=== PATIENT | female | born 1980 ===

== ENCOUNTER 2017-03-16 15:36 | Emergency (ER) | payer OTHER ==
[2017-03-16 15:51] VITALS: RESP 16
--- NOTE | 2017-03-16 16:40 | C.PDOC ---
History Of Present Illness 36 year old female, whose past medical history includes HTN, presents to the ED for evaluation of a periorbital headache and intermittent dizziness which began around 3 days ago. Patient states she was evaluated by her PMD yesterday, who increased the dosage of her blood pressure medication. Patient states her dizziness and still not resolved and presents to the ED for further evaluation. 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 Patient denies fever, chills, nausea, vomiting, extremity numbness/weakness, or symptoms being the worst headache of her life. Time Seen by Provider: 03/16/17 16:01 Chief Complaint (Nursing): Dizziness/Lightheaded History Per: Patient History/Exam Limitations: no limitations Onset/Duration Of Symptoms: Days (3), Intermittent Episodes Current Symptoms Are (Timing): Still Present Seizure Or Post-ictal Symptoms: None Fall Associated With With Symptoms: No Additional History Per: Patient Past Medical History Reviewed: Historical Data, Nursing Documentation, Vital Signs Vital Signs: Last Vital Signs Temp 98.0 F 03/16/17 17:33 Pulse 81 03/16/17 17:33 Resp 16 03/16/17 17:33 BP 113/79 03/16/17 17:33 Pulse Ox 99 03/16/17 18:55 - Medical History PMH: HTN Family History: States: No Known Family Hx - Social History Hx Tobacco Use: No Hx Alcohol Use: No Hx Substance Use: No - Immunization History Hx Tetanus Toxoid Vaccination: No Hx Influenza Vaccination: No Hx Pneumococcal Vaccination: No Review Of Systems Constitutional: Negative for: Fever, Chills Gastrointestinal: Negative for: Nausea, Vomiting Neurological: Positive for: Headache (periorbital ), Dizziness. Negative for: Weakness, Numbness Physical Exam - Physical Exam Appears: Non-toxic, No Acute Distress Skin: Normal Color, Warm, Dry Head: Atraumatic, Normacephalic, No Tenderness, No Swelling Eye(s): bilateral: Normal Inspection, PERRL, EOMI Ear(s): Bilateral: Normal Nose: Normal, No Discharge Oral Mucosa: Moist Throat: Normal, No Erythema, No Exudate Neck: Supple Chest: Symmetrical, No Deformity, No Tenderness Cardiovascular: Rhythm Regular, No Murmur Respiratory: Normal Breath Sounds, No Rales, No Rhonchi, No Wheezing Extremity: Normal ROM, Capillary Refill (less than 2 seconds ) Neurological/Psych: Oriented x3, Normal Speech, Normal Cognition, Other (no focal deficits ) Gait: Steady ED Course And Treatment O2 Sat by Pulse Oximetry: 99 (on RA) Pulse Ox Interpretation: Normal Progress Note: Meclizine PO and Tylenol PO administered. On reassessment, patient is resting comfortably, showing no signs of distress and reports complete resolution of her symptoms. Patient is stable for discharge and is advised to follow up with her PMD and Dr. Luevano within 1-2 days for further evaluation and/or return to the ED if sytmptoms return or worsen. Reassessment Condition: Improved Disposition Counseled Patient/Family Regarding: Studies Performed, Diagnosis, Need For Followup - Disposition Referrals: Kushal Lombardo DO [Staff Provider] - Danny Luevano MD [Staff Provider] - Disposition: HOME/ ROUTINE Disposition Time: 17:19 Condition: STABLE Additional Instructions: FOLLOW UP WITH DR. LOMBARDO AND DR. LUEVANO ON SATURDAY FOR RE-EVALUATION. IF SYMPTOMS GET WORSE OR ANY NEW CONCERNING SYMPTOMS DEVELOP RETURN TO ED. 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 - Scribe Statement The provider has reviewed the documentation as recorded by the Scribe (Jillian Higgins) All medical record entries made by the Scribe were at my direction and personally dictated by me. I have reviewed the chart and agree that the record accurately reflects my personal performance of the history, physical exam, medical decision making, and the department course for this patient. I have also personally directed, reviewed, and agree with the discharge instructions and disposition.
[2017-03-16 17:34] VITALS: BP 113/79; PULSE 81; TEMP 98
[2017-03-16 18:47] VITALS: O2SAT 99
== END 2017-03-16 17:42 | disposition home or self-care (01) ==
LOC: C.ER 15:36
DX: R42 Dizziness and giddiness (principal); R51 Headache

== ENCOUNTER 2018-07-04 09:49 | Emergency (ER) | payer OTHER ==
[2018-07-04 10:03] VITALS: PULSE 72
[2018-07-04] MEDS ORDERED: Sodium Chloride 0.9% 1,000 ML IV ONE (10:36)
[2018-07-04 11:02] LABS: BASO % 0.5 % (0.0-2.0); EOS % 0.6 % (0.0-4.0); LYMPH # 1.3 K/uL (1.0-4.3); LYMPH % 28.8 % (20.0-40.0); MEAN CELL VOLUME 86.2 fL (81.0-99.0); MEAN CORPUSCULAR HEMOGLOBIN 27.6 pg (27.0-31.0); MEAN PLATELET VOLUME 8.8 fL (7.2-11.7); MONO # 0.4 K/uL (0.0-0.8); MONO % 9.3 % (0.0-10.0); NEUT # 2.8 K/uL (1.8-7.0); NEUT % 60.8 % (50.0-75.0); NRBC % 0.1 % (0.0-2.0); RBC 4.72 Mil/uL (3.80-5.20); RED CELL DISTRIBUTION WIDTH 13.4 % (11.5-14.5); WHITE BLOOD COUNT 4.6 K/uL (4.8-10.8)
[2018-07-04 11:12] LABS: HCG,QUALITATIVE URINE NEGATIVE (NEGATIVE)
[2018-07-04 11:16] LABS: ALB/GLOB RATIO 1.2 (1.0-2.1); ALBUMIN 4.2 g/dL (3.5-5.0); ALT/SGPT 18 U/L (9-52); AST/SGOT 30 U/L (14-36); BLOOD UREA NITROGEN 13 mg/dL (7-17); GFR NON-AFRICAN AMERICAN > 60; LIPASE 221 U/L (23-300)
[2018-07-04 11:26] LABS: SQUAMOUS EPITHIAL 9 /hpf (0-5); URINE BACTERIA RARE (<OCC); URINE BILIRUBIN NEGATIVE (NEGATIVE); URINE BLOOD NEGATIVE (NEGATIVE); URINE CLARITY Hazy (Clear); URINE COLOR YELLOW (YELLOW); URINE GLUCOSE (UA) NORMAL (Normal); URINE LEUKOCYTE ESTERASE TRACE Leu/uL (Negative); URINE PROTEIN 1+ mg/dL (NEGATIVE); URINE UROBILINOGEN NORMAL mg/dL (0.2-1.0)
--- NOTE | 2018-07-04 12:00 | C.PDOC ---
History Of Present Illness Patient complains of 2 days generalized cramping abdominal pain with associated nausea, vomiting and diarrhea. states stool is loose, but not actual "diarrhea". Denies fever, urinary symptoms, back pain, recent travel, sick contacts. Time Seen by Provider: 07/04/18 10:23 Chief Complaint (Nursing): Abdominal Pain History Per: Patient History/Exam Limitations: no limitations Onset/Duration Of Symptoms: Days (2) Current Symptoms Are (Timing): Still Present Location Of Pain/Discomfort: Diffuse Past Medical History Reviewed: Historical Data, Nursing Documentation, Vital Signs Vital Signs: Last Vital Signs Temp 98.7 F 07/04/18 10:02 Pulse 72 07/04/18 10:02 Resp 20 07/04/18 10:02 BP 139/93 H 07/04/18 10:02 Pulse Ox 96 07/04/18 10:02 - Medical History PMH: HTN Family History: States: Unknown Family Hx - Social History Hx Tobacco Use: No Hx Alcohol Use: No Hx Substance Use: No - Immunization History Hx Tetanus Toxoid Vaccination: No Hx Influenza Vaccination: No Hx Pneumococcal Vaccination: No Review Of Systems Constitutional: Negative for: Fever, Weakness Cardiovascular: Negative for: Chest Pain, Palpitations Respiratory: Negative for: Shortness of Breath Gastrointestinal: Positive for: Nausea, Vomiting, Abdominal Pain, Diarrhea. Negative for: Constipation, Rectal Pain Genitourinary: Negative for: Dysuria, Vaginal Bleeding Skin: Negative for: Rash Neurological: Negative for: Headache Physical Exam - Physical Exam Appears: Well, Non-toxic, No Acute Distress Skin: Warm, Dry, No Pale, No Jaundice Head: Atraumatic, Normacephalic Eye(s): bilateral: Normal Inspection, EOMI Neck: Normal ROM Chest: Symmetrical Cardiovascular: Rhythm Regular, No Murmur Respiratory: Normal Breath Sounds, No Accessory Muscle Use, No Wheezing Gastrointestinal/Abdominal: Bowel Sounds, Soft, Tenderness (diffuse across abdomen), No Organomegaly, No Mass, No Distention, Guarding, No Rebound, No Hernia Back: Normal Inspection, No CVA Tenderness Extremity: Bilateral: Atraumatic, Normal ROM Neurological/Psych: Oriented x3, Normal Speech ED Course And Treatment - Laboratory Results Result Diagrams: 07/04/18 10:58 07/04/18 10:58 Lab Results: Total Bilirubin 0.9 mg/dL (0.2-1.3) 07/04/18 10:58 AST 30 U/L (14-36) 07/04/18 10:58 ALT 18 U/L (9-52) 07/04/18 10:58 Alkaline Phosphatase 73 U/L (38-126) 07/04/18 10:58 Total Protein 7.6 g/dL (6.3-8.3) 07/04/18 10:58 Albumin 4.2 g/dL (3.5-5.0) 07/04/18 10:58 Globulin 3.4 gm/dL (2.2-3.9) 07/04/18 10:58 Albumin/Globulin Ratio 1.2 (1.0-2.1) 07/04/18 10:58 Lipase 221 U/L (23-300) 07/04/18 10:58 Urine Color Yellow (YELLOW) 07/04/18 10:46 Urine Clarity Hazy (Clear) 07/04/18 10:46 Urine pH 6.0 (5.0-8.0) 07/04/18 10:46 Ur Specific [place] 1.025 (1.003-1.030) 07/04/18 10:46 Urine Protein 1+ mg/dL (NEGATIVE) H 07/04/18 10:46 Urine Glucose (UA) Normal mg/dL (Normal) 07/04/18 10:46 Urine Ketones Negative mg/dL (NEGATIVE) 07/04/18 10:46 Urine Blood Negative (NEGATIVE) 07/04/18 10:46 Urine Nitrate Negative (NEGATIVE) 07/04/18 10:46 Urine Bilirubin Negative (NEGATIVE) 07/04/18 10:46 Urine Urobilinogen Normal mg/dL (0.2-1.0) 07/04/18 10:46 Ur Leukocyte Esterase Trace Carmine/uL (Negative) 07/04/18 10:46 Urine WBC (Auto) 7 /hpf (0-5) H 07/04/18 10:46 Urine RBC (Auto) 6 /hpf (0-3) H 07/04/18 10:46 Ur Squamous Epith Cells 9 /hpf (0-5) H 07/04/18 10:46 Urine Bacteria Rare (<OCC) 07/04/18 10:46 Urine HCG, Qual Negative (NEGATIVE) 07/04/18 10:46 Urine HCG, Qual Negative (NEGATIVE) 07/04/18 10:46 O2 Sat by Pulse Oximetry: 96 Medical Decision Making Medical Decision Making: Impression: abdominal pain with vomiting and diarrhea Plan: * Labs * UA * IV NS, Pepcid Progress: Labs reviewed and unremarkable, no leukocytosis or electrolyte abnormality. UA negative Patient re-evaluated and was resting comfortably in no acute distress. Patient reports improvement of symptoms. Discussed results with patient, and copy of lab report was provided. Patient feels comfortable going home and will be discharged. Patient given follow up instructions. Instructed to return to ER if symptoms worsen or new symptoms arise. Disposition Counseled Patient/Family Regarding: Diagnosis, Need For Followup, Rx Given - Disposition Disposition: HOME/ ROUTINE Disposition Time: 11:58 Condition: IMPROVED Additional Instructions: Kiran medicamentos para ayudar a tratar los vmitos y la diarrea. Beber lquidos para mantenerse hidratado. Prescriptions: Atropine/Diphenoxylate [Lonox 0.025 MG-2.5 MG] 1 tab PO Q8 PRN #15 tab PRN Reason: Diarrhea Dicyclomine [Bentyl] 10 mg PO QID #20 cap Ondansetron ODT [Zofran ODT] 1 odt PO BID PRN #6 odt PRN Reason: Nausea/Vomiting Instructions: Gastroenteritis (DC) Print Language: [place] - POA Present On Arrival: None - Clinical Impression Clinical Impression: Gastroenteritis
[2018-07-04 12:18] VITALS: BP 120/72; RESP 18; TEMP 97.8
[2018-07-04 12:53] VITALS: O2SAT 96
== END 2018-07-04 12:18 | disposition home or self-care (01) ==
LOC: C.ER 09:49
DX: K52.9 Noninfective gastroenteritis and colitis, unspecified (principal); I10 Essential (primary) hypertension
CPT/HCPCS: 80053; 81001; 81025; 83690; 84703; 85025; 96361; 96374; 99284; J7030